=== PATIENT | male | born 2005 | race Caucasian/White ===

== ENCOUNTER 2024-12-15 22:11 | Emergency (ER) | payer OTHER, SELFPAY ==
[2024-12-15 22:23] VITALS: BP 141/88
[2024-12-15] MEDS: TYLENOL 650 MG PO (22:40)
--- NOTE | 2024-12-15 23:58 | ED.GENMED ---
History of Present Illness
General
Chief Complaint: Musculo-Skeletal Complaint
Source: patient
Time Seen by Provider: 12/15/24 23:47
History of Present Illness
History of Present Illness:
Note:
CHIEF COMPLAINT(S)
Ankle pain and swelling.
HISTORY OF PRESENT ILLNESS
The patient is a 19-year-old male presenting with significant pain and swelling in the ankle. Patient was playing basketball and when he went up for a jump shot came down and landed on his friend's foot causing his ankle to invert. He noted
immediate onset of pain and swelling to the lateral aspect of the ankle, unable to bear weight secondary to the pain. No other injuries were sustained
Past History
Past History
ED Past Medical History: None
ED Past Surgical History: None
Social History
Tobacco: Non-smoker
Alcohol: None
Drug: None
Personal: Single
Living: with family
Employment: Employed
Review of Systems
Review of Systems
All Other Systems: ROS reviewed and negative except as documented in HPI and ROS
Phy Exam
Physical Exam
Physical Exam:
GENERAL: Alert , in no apparent distress
EYE: conjunctiva clear
Head: Normocephalic atraumatic
NECK: Supple,
ENT: mmm.
LUNGS: no acute respiratory distress
NEUROLOGICAL: Alert and oriented
SKIN: Warm and dry, skin intact.
MUSCULOSKELETAL: Left lower extremity: Moderate soft tissue swelling around the lateral malleolus. Tenderness directly over this area. No tenderness at the base of the fifth metatarsal. Calcaneal tendon intact. Easily palpable pedal pulse. Cap
refill less than 2 seconds. Sensation grossly intact to light touch. No proximal tib-fib tenderness
PSYCH: Normal and appropriate interaction.
Scores
Heart Failure Risk
Heart Failure Risk Score: Not Applicable
Heart Score for Chest Pain Patients
STEMI patient?: Not applicable
Withdrawal Assessment of Alcohol
Withdrawal Assessment Completed?: Not applicable
Course
Orders/Labs/Results
Orders:
Orders
12/15/24 22:27
Ankle, left 3 view CR [CR Ankle - Left Min 3 Views ] Urgent
Comment:
Reason For Exam: injury
12/15/24 22:33
Acetaminophen [Tylenol] 650 mg .ROUTE .STK-MED ONE
12/15/24 22:40
Acetaminophen [Tylenol] 650 mg PO NOW STA
12/15/24 23:59
Crutches-Treatment ONCE
Ortho Boot Left- Treatment ONCE
Short or tall?: Short
Vital Signs
Initial and Last Documented VS:
Initial Vital Signs
Temp Pulse Resp BP Pulse Ox
98.1 F 89 20 141/88 98
12/15/24 22:23 12/15/24 22:23 12/15/24 22:23 12/15/24 22:23 12/15/24 22:23
Last Documented Vital Signs
Temp Pulse Resp BP Pulse Ox
98.1 F 89 20 141/88 98
12/15/24 22:23 12/15/24 22:23 12/15/24 22:23 12/15/24 22:23 12/15/24 23:59
MDM/Problems Addressed
Differential Diagnosis Includes:
The Differential Diagnosis includes, in no particular order and is not limited to:
1. Ankle sprain
2. Ligamentous/tendon injury
3. Achilles tendinitis
4. Fracture
MDM/Problems Addressed:
X-ray performed shows no acute fracture but does show significant soft tissue swelling. The patient was advised to keep the ankle elevated and apply ice consistently over the weekend to manage swelling. An orthopedic boot and crutches have been
provided for immobilization and mobility support. The patient was advised to follow up with an vascular specialists for potential physical therapy for range of motion and strength rehabilitation. Continued use of ibuprofen or acetaminophen for pain
management was recommended. He was advised to monitor symptoms and seek further evaluation if pain or swelling persists into the following week.
*Radiology
Radiology exam reviewed: preliminary read by ED provider (No acute fracture)
*Pulse Oximetry
SaO2: 98
Oxygen Mode of Delivery: Room air
Patient hypoxic: no
*Critical Care Note
Total Time (30-74mins, 75-104mins- exclusive of procedures): Not Applicable
ED Attending Note
-
Portions of this chart may have been created with voice recognition software.� Occasional wrong word or��sound alike� substitutions may have occurred due to the inherent limitations of voice recognition software.
Discharge Plan
Departure
Patient Disposition: Home (Routine Discharge)
Date of Disposition: 12/15/24
Time of Disposition: 23:58
Patient with high blood pressure during this ER visit?: No
Discharge Problem:
Left ankle sprain
Instructions: Sprain (DC)
Prescriptions:
No Action
ondansetron 4 MG tablet,disintegrating
4 mg PO TIDPRN PRN (Reason: nausea) Qty: 9 0RF
Referrals:
Armen Ramos MD [Family Provider, Family Practice]
Eneida Al I., DO [Active, Orthopedics]
Referral Note: Ortho
Interventions
Interventions:
*Risk Screen - Suicide Last Done: 12/15/24 22:23
*General Assessment Last Done: 12/15/24 22:23
*Neglect/Abuse Screening Last Done: 12/15/24 22:23
*ED- Fall Risk Assessment Last Done: 12/15/24 22:23
*ED COVID-19 Vaccine History Last Done: 12/15/24 22:23
*Nursing Disposition Last Done: 12/16/24 00:38
ED-Musculoskeletal Assessment Last Done: 12/15/24 23:57
Discharge Date and Time
Discharge Date/Time: 12/16/24 00:39
Print Language: WALLISIAN
== END 2024-12-16 00:39 | disposition home or self-care (01) ==
LOC: EMR 22:11
PROVIDERS: EMERGENCY PHYSICIAN Emergency Medicine; FAMILY PHYSICIAN Family Medicine
DX: S93.402A Sprain of unspecified ligament of left ankle, initial encounter (principal); X50.1XXA Overexertion from prolonged static or awkward postures, initial encounter
CPT/HCPCS: 99283; 73610